=== PATIENT | female | born 1945 | race Caucasian/White ===

== ENCOUNTER 2018-05-03 11:42 | Emergency (ER) | payer MEDICARE, OTHER ==
[~2018-05-03] VITALS: Ht 157.5 cm; Wt 654.5 kg
[2018-05-03] MEDS ORDERED: SENEXON8.6 MG PO (12:12)
[2018-05-03] MEDS ORDERED: B COMPLEX # 11 EACH PO (12:13)
[2018-05-03] MEDS ORDERED: WOMEN'S LAXATIVE5 M1 PO (12:13)
[2018-05-03] MEDS ORDERED: ECHINACEA80 MG PO (12:14)
[2018-05-03] MEDS ORDERED: VITAMIN D-32000 UNI1 PO (12:16)
[2018-05-03] MEDS ORDERED: SEROQUEL25 MG PO (12:16)
[2018-05-03] MEDS ORDERED: ATIVAN0.5 MG PO (12:16)
[2018-05-03] MEDS ORDERED: L-METHYLFOLATE7.5 MG PO (12:17)
[2018-05-03] MEDS ORDERED: GABAPENTIN600 MG PO (12:18)
[2018-05-03] MEDS ORDERED: LAMICTAL100 MG PO (12:18)
[2018-05-03] MEDS ORDERED: REGLAN10 MG PO (12:19)
[2018-05-03] MEDS ORDERED: WELLBUTRIN SR150 MG PO (12:19)
[2018-05-03] MEDS ORDERED: LIPITOR20 MG PO (12:20)
[2018-05-03] MEDS ORDERED: OXYBUTYNIN CHLO15 MG PO (12:20)
[2018-05-03] MEDS ORDERED: CARVEDILOL12.5 MG PO (12:21)
[2018-05-03] MEDS ORDERED: GLUCOPHAGE500 MG PO (12:21)
[2018-05-03] MEDS ORDERED: AMOXICILLIN500 MG PO (12:22)
== END 2018-05-03 12:29 | disposition home or self-care (01) ==
LOC: ED 11:42
DX: N39.0 Urinary tract infection, site not specified (principal); Z88.6 Allergy status to analgesic agent; Z88.5 Allergy status to narcotic agent; Z88.8 Allergy status to other drugs, medicaments and biological substances; Z79.899 Other long term (current) drug therapy; Z86.73 Personal history of transient ischemic attack (TIA), and cerebral infarction without residual deficits
CPT/HCPCS: 99283